=== PATIENT | male | born 1955 | race Caucasian/White ===

== ENCOUNTER → 2018-02-01 | Outpatient (CLI) | payer MEDICARE | LOC: M.ULTRA 12:52 | DX: I73.9 Peripheral vascular disease, unspecified (principal) ==

== ENCOUNTER → 2018-09-21 | Outpatient (CLI) | payer MEDICARE ==
--- NOTE | 2018-09-21 17:28 | 2DMMODE ---
[place] [address] 2 D/M-MODE ECHOCARDIOGRAM Name: JOHN TRIVEDI Room: [facility]#: [id number] Admission: 09/21/18 Attend Phys: Edison Conley MD Discharge: Date of : 55 Date of Service: 09/21/18 1728 Report #: [id number] THIS REPORT FOR: //name// APPROVED REPORT Study performed: 09/21/2018 12:55:28 EXAM: Comprehensive 2D, Doppler, and color-flow Echocardiogram Patient Location: Out-Patient BSA: 2.04 HR: 115 bpm BP: 132/82 mmHg Other Information Study Quality: Fair Indications Abnormal ECG 2D Dimensions IVSd: 11.73 (7-11mm) LVOT Diam: 20.88 (18-24mm) LVDd: 35.25 mm PWd: 11.25 (7-11mm) Ascending Ao: 29.25 (22-36mm) LVDs: 21.15 (25-40mm) Aortic Root: 23.92 mm Volumes Left Atrial Volume (Systole) LA ESV Index: 15.80 mL/m2 Aortic Valve AoV Peak Pablo.: 0.88 m/s AO Peak Gr.: 3.10 mmHg LVOT Max P.32 mmHg AO Mean Gr.: 1.57 mmHg LVOT Mean P.17 mmHg LVOT Max V: 0.76 m/s AO V2 VTI: 12.72 cm LVOT Mean V: 0.50 m/s ELENI (VTI): 3.56 cm2 LVOT V1 VTI: 13.21 cm Mitral Valve MV Decel. Time: 113.80 ms MV PHT: 33.00 ms MVA (PHT): 6.67 cm2 [place] [address] 2 D/M-MODE ECHOCARDIOGRAM Name: JOHN TRIVEDI Room: [facility]#: [id number] Admission: 09/21/18 Attend Phys: Edison Conley MD Discharge: Date of : 55 Date of Service: 09/21/18 1728 Report #: [id number] Medial E' Pablo.: 0.05 m/s Lateral E' Pablo.: 0.06 m/s Pulmonary Valve PV Peak Pablo.: 0.86 m/s PV Peak Gr.: 2.97 mmHg Left Ventricle The left ventricle is normal size. There is normal LV segmental wall motion. There is normal left ventricular wall thickness. Left ventricular systolic function is normal. The left ventricular ejection fraction is within the normal range. LVEF is 60-65%. The left ventricular diastolic function is normal. Right Ventricle The right ventricle is normal size. The right ventricular systolic function is normal. Atria The left atrium size is normal. The right atrium size is normal. Aortic Valve The aortic valve is normal in structure. No aortic regurgitation is present. There is no aortic valvular stenosis. Mitral Valve The mitral valve is normal in structure. There is no mitral valve regurgitation noted. No evidence of mitral valve stenosis. Tricuspid Valve The tricuspid valve is normal in structure. There is no tricuspid valve regurgitation noted. Pulmonic Valve The pulmonary valve is normal in structure. There is no pulmonic valvular regurgitation. Great Vessels The aortic root is normal in size. IVC is normal in size and collapses >50% with inspiration. Pericardium There is no pericardial effusion. <Conclusion> The left ventricle [place] [address] 2 D/M-MODE ECHOCARDIOGRAM Name: [facility]EDI [id number] Admission: 09/21/18 Attend Phys: Edison Conley MD Discharge: Date of : 55 Date of Service: 09/21/18 1728 Report #: [id number] There is normal left ventricular wall thickness. Left ventricular systolic function is normal. The left ventricular ejection fraction is within the normal range. LVEF is 60-65%. The left ventricular diastolic function is normal. The left atrium size is normal. The aortic valve is normal in structure. The mitral valve is normal in structure. The tricuspid valve is normal in structure. IVC is normal in size and collapses >50% with inspiration. There is no pericardial effusion. There is normal LV segmental wall motion. <ELECTRONICALLY SIGNED> By: Fab Aqiuno MD, FACC 09/21/18 1728 27 27 Fab Aquino MD, FACC /INF
--- NOTE | 2018-09-21 18:38 | CARDNUC ---
[place] [address] CARDIAC NUCLEAR IMAGING REPORT Name: JOHN TRIVEDI Room: [facility]#: [id number] Admission: 09/21/18 Attend Phys: Edison Conley MD Discharge: Date of : 55 Date of Service: 09/21/181836 Report #: [id number] THIS REPORT FOR: //name// APPROVED REPORT Imaging Protocol: Rest Tc-99m/Stress Tc-99m 1 day Study performed: 09/21/2018 13:15:00 Indication: Abnormal EKG Patient Location: Out-Patient Stress Tech: Yoal Key Stress Nurse: Raina Anderson RN NM Tech:ZENAIDA Pandey Ht: 6 ft 5 in Wt: 257 lbs BSA: 2.49 m2 BMI: 30.47 Medical History Medical History: guillian barre syndrom, hyperlipidemia, diabetes Medications: lipitor Allergies: influenza Cardiac Risk Factors: age, hyperlipidemia, diabetes Exercise History: Sedentary Resting Data Rest SPECT myocardial perfusion imaging was performed in supine position 30 minutes following the intravenous injection of 10.9 mCi of Tc-99m Sestamibi. Time of rest injection: 1345 Date: 09/21/2018 Time of rest imagin The images were gated to evaluate regional wall motion and calculate left ventricular ejection fraction. Administration Route: IV Administration Site: Right Hand Pharmacologic Stress Pharmacologic stress test was performed by injecting Regadenoson 0.4 mg IV push over 10-15 seconds immediately followed by the intravenous injection of 36.0 mCi of Tc-99m Sestamibi. Time of stress injection: 1445 Date: 09/21/2018 Time of stress imagin Administration Route: IV Administration Site: Right Hand Gated Stress SPECT was performed 40 minutes [place] [address] CARDIAC NUCLEAR IMAGING REPORT Name: JOHN TRIVEDI Room: [facility]#: [id number] Admission: 09/21/18 Attend Phys: Edison Conley MD Discharge: Date of : 55 Date of Service: 09/21/18 1837 Report #: [id number] injection. The images were gated to evaluate regional wall motion and calculate left ventricular ejection fraction. Prone imaging was performed. Stress Test Details Stress Test: Pharmacologic stress testing performed using 0.4 mg of regadenoson per 5 mL given IV over 10 seconds. 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 HR Max Heart Rate (APMHR): 157 bpm Resting HR: 110 bpm Target HR (85% APMHR): 133 bpm Max HR Achieved: 124 bpm % of APMHR: 78 Recovery HR: 114 bpm BP Resting BP: 152/85 mmHg Max BP: 146/84 mmHg Recovery BP: 162/89 mmHg ECG Resting ECG: Sinus Tachycardia Stress ECG: Sinus Tachycardia ST Change: None Arrhythmia: None Recovery ECG: Sinus Tachycardia Recovery ST Change: None Recovery Arrhythmia: None Clinical Reason for Termination: Completed protocol Stress Symptoms: None Exercise duration: 0 min 0 sec Exercise capacity: 2.30 METs The patient tolerated Lexiscan infusion without significant symptoms. 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 Patient tolerated lexiscan well. Recovery unremarkable. Patient escorted by staff to Nuclear Medicine for images. Patient stable with no complaints at that time. Stress ECG Conclusion The baseline 12-lead EKG shows sinus [place] [address] CARDIAC NUCLEAR IMAGING REPORT Name: JOHN TRIVEDI Room: [facility]#: [id number] Admission: 09/21/18 Attend Phys: Edison Conley MD Discharge: Date of : 55 Date of Service: 09/21/18 1837 Report #: [id number] or T wave abnormality. EKGs obtained during and post Lexiscan infusion show sinus tachycardia with no significant ST or T wave changes when compared to baseline. There were no stress-induced arrhythmias. Study Quality Study: Good Artifact: No artifact Study Data At rest, the left ventricular ejection fraction was 71%.. Post stress, the left ventricular ejection was 68%.. TID = 1.03. Perfusion Normal left ventricular perfusion. Wall Motion Global LV systolic function is preserved. There is a septal wall motion abnormality of uncertain significance. Nuclear Conclusion ECG Findings: negative for ischemia Clinical Findings: negative for ischemia Nuclear Findings: negative for ischemia Exercise Capacity: not assessed Left Ventricular Function: preserved Myocardial perfusion images show uniform uptake of the radioisotope without the myocardium. There were no defects to suggest infarct or ischemia. Global LV systolic function is well-preserved. There is a septal wall motion abnormality noted of uncertain significance. This is a not a high risk study. <Conclusion> The baseline 12-lead EKG shows sinus tachycardia without significant ST or T wave abnormality. EKGs obtained during and post Lexiscan infusion show sinus tachycardia with no significant ST or T wave changes when compared to baseline. There were no stress-induced arrhythmias. <ELECTRONICALLY SIGNED> By: Michel Rojas MD, FACC 09/21/181836 36 36 Michel Rojas MD, FACC /INF
== END ==
LOC: M.CRD 08-24 07:46
DX: R94.31 Abnormal electrocardiogram [ECG] [EKG] (principal); R00.0 Tachycardia, unspecified